=== PATIENT | male | born 1955 | race Two or more races ===

== ENCOUNTER 2025-02-05 19:37 | Emergency (ER) | payer OTHER ==
[~2025-02-05] VITALS: Ht 170.2 cm; Wt 68.9 kg
[2025-02-05] MEDS ORDERED: CILOSTAZOL50 MG PO (19:46)
[2025-02-05] MEDS ORDERED: AMITRIPTYLINE HC5 GM MC (19:46)
[2025-02-05] MEDS ORDERED: CARVEDILOL ER40 MG PO (19:46)
[2025-02-05] MEDS ORDERED: TRIJARDY XR 5-1 EACH PO (19:46)
[2025-02-05] MEDS ORDERED: PLAVIX75 MG PO (19:46)
[2025-02-05] MEDS ORDERED: INSULIN AS100 UNIT/1 SQ (19:47)
[2025-02-05] MEDS ORDERED: PANTOPRAZO40 MG/50 M IV (19:47)
[2025-02-05] MEDS ORDERED: ZANAFLEX2 M1 (19:47)
[2025-02-05] MEDS ORDERED: ACID CONTROLLER10 MG PO (19:47)
[2025-02-06] MEDS ORDERED: DOLOGESIC 500-1 EACH PO (01:17)
== END 2025-02-06 01:29 ==
LOC: ER 19:38
DX: S09.8XXA Other specified injuries of head, initial encounter (principal); S00.03XA Contusion of scalp, initial encounter; W19.XXXA Unspecified fall, initial encounter; Y93.89 Activity, other specified; Y92.89 Other specified places as the place of occurrence of the external cause; Y99.8 Other external cause status; I10 Essential (primary) hypertension; E11.9 Type 2 diabetes mellitus without complications; Z79.4 Long term (current) use of insulin; Z88.8 Allergy status to other drugs, medicaments and biological substances